=== PATIENT | female | born 1990 | race Caucasian/White ===

== ENCOUNTER 2018-12-27 08:00 | Inpatient (IN) ==
[2018-12-27] MEDS ORDERED: Famotidine 20 MG/2 ML VIAL IVP PRN (08:13)
[2018-12-27] MEDS ORDERED: *HR* Nalbuphine 10 MG/ML AMPUL IVP PRN (08:13)
[2018-12-27] MEDS ORDERED: Metoclopramide 10 MG/2 ML VIAL IVP PRN (08:13)
[2018-12-27] MEDS ORDERED: Ondansetron 4 MG/2 ML VIAL IVP PRN (08:13)
[2018-12-27] MEDS ORDERED: Oxytocin 20 units/ LR 1000 mL 20 UNIT/1,000 ML BAG IVC SCH (08:15)
[2018-12-27] MEDS ORDERED: Ringers Solution, Lactated 1,000 ML IVC SCH (08:15)
[2018-12-27 08:50] LABS: Basophils # 0.1 K/mcL (0.0-0.2); Basophils % 0.4 %; Eosinophils # 0.1 K/mcL (0.0-0.6); Eosinophils % 0.7 %; Hematocrit 32.1 % (35.3-44.9); Hemoglobin 10.8 g/dL (11.5-15.4); Immature Granulocytes % 1.1 % (0-4); Lymphocytes % 24.2 %; Mean Corpuscular HGB Conc 33.6 g/dL (31.6-35.5); Mean Corpuscular Hemoglobin 30.4 pg (28.0-33.3); Mean Corpuscular Volume 90.4 fL (83.0-100.0); Mean Platelet Volume 9.7 fL (9.4-12.4); Monocytes % 7.6 %; Neutrophils # 8.3 K/mcL (1.6-8.9); Platelet Count 259 K/mcL (140-400); Red Blood Count 3.55 M/mcL (3.82-4.97); Red Cell Distribution Width 13.5 % (11.5-14.5)
[2018-12-27 09:27] LABS: Amphetamine Screen,Urine Negative ng/mL (Cutoff=1000); Barbiturate Screen,Urine Negative ng/mL (Cutoff=200); Benzodiazepines Screen,Urine Negative ng/mL (Cutoff=200); Cocaine Screen,Urine Negative ng/mL (Cutoff= 300); Opiate Screen,Urine Negative ng/mL (Cutoff=300); Phencyclidine Screen,Urine Negative ng/mL (Cutoff=25)
[2018-12-27 09:34] LABS: Cannabinoid Screen,Urine Negative ng/mL (Cutoff = 50)
[2018-12-27] MEDS ORDERED: Lidocaine -MPF 1% 5 ML AMPUL ONE ×2 (15:28→17:08)
[2018-12-27] MEDS ORDERED: Epidural Premix (fent/bupiv) 110 ML EP SCH (15:30)
--- NOTE | 2018-12-27 16:07 | Anesthesia Evaluation PreOp ---
Date of Encounter: 12/27/18 Time of Encounter: 14:30 - Past History Planned Operation: bernarda Cardiac History: Denies any Significant Hx Pulmonary History: Denies Any Significant HX GWOT IA/[employer] SUPPORT History: Denies Any Significant HX Other Medical History: Denies Any Significant HX Anesthesia History: No Prior Anesthetic Complications : Yes Test: Positive Alcohol Use: none Drug use: none Medications and Allergies Ondansetron HCl [Zofran] 4 mg PO Q8H PRN 10/31/18 [History] Pnv95/Ferrous Fumarate/FA [ Vitamin Tablet] 1 each PO DAILY 10/31/18 [History] Allergy/AdvReac Type Severity Reaction Status Date / Time cephalexin [From Keflex] Allergy Rash Verified 10/31/18 18:04 - Meds/Allergy Pre-op Review Medications Reviewed: Yes Allergies Reviewed: Yes Beta Blockers on Current Med List: Yes Anesthesia Results - Labs 12/27/18 08:25 Anesthesia Exam - HEENT Pupil (Motor): Pupils equal Mallampati: II Teeth: Normal Oral Opening: Greater than 3 - GWOT IA/[employer] SU[employer] LOC: Oriented GWOT IA/[employer] SU[employer] Motor: Normal RUE, Normal LUE, Normal RLE, Normal LLE, Normal Face GWOT IA/[employer] SU[employer] Sensory: Normal: RUE, LUE, RLE, LLE, Face - Cardiac Rhythm: Regular Murmur: None JVD: No Carotid Bruit: No - Pulmonary Breath Sounds: bilateral Clear Respiratory Effort: Symmetrical Anesthesia Assess/Plan ASA Score: 2 Level of consciousness: Cooperative Anesthetic Plan: Epidural
--- NOTE | 2018-12-27 16:09 | Anesthesia Procedures ---
Addendum entered and electronically signed by Fide Ace CRNA 12/28/18 06:22: converted to csection at [id number] baby [id number] Addendum entered and electronically signed by Fide Ace CRNA 12/27/18 17:49: called to patients room state labor pain level 7 with contractions, option of redoing epidural given, risks benefits explained, pt agrees, epidural catheter pulled, tip intact. L3 4 innerspace identified, betadine cleanse x3, sterile drape, HUEY technigue 18 gauge touhy with saline to epidural space, no csf, or heme noted. catheter thread with ease, negative test dose 1.5%lidocaine with epi 3ml. Lidocaine 2% with epi 8ml given via catheter. opsite, tape applied. catheter at 8cm skin, states immediate relief from contractions. Original Note: Date of Encounter: 12/27/18 Time of Encounter: 14:30 Procedures: Anesthesia - Epidural/Spinal Patient ID/Chart reviewed: Yes Patient examined: Yes OB Eval: Gestational age: 39.4 OB Eval: : 2 OB Eval: Hx Para: 1 OB Eval: Dilated at (cm): 4 OB Eval: Contractions: Non-stressed pattern Consent Obtained: Yes Supplemental Oxygen: None/Room Air Site Prep: Aseptic Technique, Sterile prep and drape, Povidone-Iodine 1% Patient position: upright Amount of Local Anesthetic used: 3 Touhy Needle Gauge: 18 Touhy Needle Depth (cm): 9 Catheter Depth at Skin (cm): 8 Test Dose (1.5% Lido + Epi): Volume given (mls): 3 Test Dose Result: Negative Infusion Rate (mls/hr): [address]: Tegaderm, Tape Interspace Used: L4-L5 Loss of Resistance (HUEY): Yes Blood: No CSF: No Paresthesia: No Vitals + FHT's: stable throughout see nursing notes. tolerated procedure well
[2018-12-27] MEDS ORDERED: EPHEDrine 50 MG/ML VIAL ONE (17:43)
--- NOTE | 2018-12-27 18:53 | OB Labor Progress Note ---
Date of Encounter: 12/27/18 Time of Encounter: 18:50 Labor Progress Note - Subjective Subjective: Pt comfortable with epidural - Cervix Cervix: 4-5/90/-2 - Heart Tones Heart Tones: RNST - [place]: uc's - Interventions Interventions: IUPC placed - Plan Plan: Expect
--- NOTE | 2018-12-27 18:57 | OB/GYN History & Physical ---
Date of Encounter: 12/27/18 Time of Encounter: 18:55 Assessment and Plan (1) 39 weeks gestation of Current visit: Yes Status: Acute Pt at 39 weeks gestation presents for induction of labor. Pt with h/o prior c- sec and desires attempt at TOLAC> She is aware of risks of TOLAC and has signed appropriate consent. History of Present Illness Chief complaint: Here for induction of labor HPI: Ms. Medina is a 28 year old female female at 39 weeks EGA presents for induction of labor. She reports + GFM, no vb or lof. Pt has h/o FTP in labor at 9 cm. Past Med Surg Social Fam HX - Past Medical History Source: patient, old records reviewed Medical history: no medical history Psychiatric history: no psych history - Past Surgical History Surgical History: , cholecystectomy - Social History Smoking Status: Never smoker Alcohol use: none Drug use: none - Family History Mother Living Status: Still Living Hx Family Cardiac Disorders: No Hx Family Respiratory Disorders: No Hx Family Cancer: No Hx Family GI Disorders: No Hx Family Endocrine Disorder: No Hx Family Neuromuscular Disorders: No Hx Family Neurologic Disorders: No Hx Family HEENT Disorders: No Hx Family Autoimmune Disorders: No Obstetrical History - Pregnancies : 2 Medications and Allergies Ondansetron HCl [Zofran] 4 mg PO Q8H PRN 10/31/18 [History] Pnv95/Ferrous Fumarate/FA [ Vitamin Tablet] 1 each PO DAILY 10/31/18 [History] Allergy/AdvReac Type Severity Reaction Status Date / Time cephalexin [From Keflex] Allergy Rash Verified 10/31/18 18:04 Exam - Constitutional Constitutional: well developed, no acute distress - HEENT HEENT: EOMI, PERRL - Neck Neck exam: full ROM - Lungs Respiratory exam: CTAB - Cardiovascular Cardiovascular exam: RRR - Abdomen Abdomen: Present: gravid - Extremities Extremities exam: full ROM Deep Tendon Reflex Grade: 2+ Normal - Cervix Dilation: 3 Effacement: 80 Station: -2 Results Result Diagrams: 12/27/18 08:25 Abnormal lab results WBC 12.5 K/mcL (4.3-11.1) H 12/27/18 08:25 RBC 3.55 M/mcL (3.82-4.97) L 12/27/18 08:25 Hgb 10.8 g/dL (11.5-15.4) L 12/27/18 08:25 Hct 32.1 % (35.3-44.9) L 12/27/18 08:25 All other labs normal. - VTE Reasons for not Prescribing Prophylaxis: Treatment not Indicated - Low risk for VTE
--- NOTE | 2018-12-27 21:46 | OB Labor Progress Note ---
Date of Encounter: 12/27/18 Time of Encounter: 21:44 Labor Progress Note - Subjective Subjective: Pt comfortable with epidural,, getting discouraged. - Cervix Cervix: 5+/90/0, bloody show noted - Heart Tones Heart Tones: RNST - [place]: UC'sq 90sec to 3 min. - Plan Plan: D/w pt options, will cont. with induction.
[2018-12-28] MEDS ORDERED: Metoclopramide 10 MG/2 ML VIAL IVP ONE (00:57)
--- NOTE | 2018-12-28 05:10 | OB Labor Progress Note ---
Date of Encounter: 12/28/18 Time of Encounter: 05:06 Labor Progress Note - Subjective Subjective: Pt comfortable with epidural. Cvx remains rim/c/+1 without change for 2 hours. FHT's 150's with occ late decels therefore pitocin has needed to be turned off. Pt with desire for . She is aware of operative risks and desires to proceed with . She signed appropriate consent. - Cervix Cervix: rim/c/+1 - Heart Tones Heart Tones: FHT's 150's - Interventions Interventions: D/w pt options and will proceed with . - Plan Plan: Will proceed with primary .
[2018-12-28] MEDS ORDERED: Lidocaine/EPI 1:200k 2% PF 20 ML VIAL ONE ×2 (05:34→05:42)
[2018-12-28] MEDS ORDERED: Clindamycin 900 MG/50 ML 900 MG/50 ML IV.SOLN IVPB ONE (05:40)
[2018-12-28] MEDS ORDERED: Dexamethasone 4 MG/ML VIAL ONE (05:47)
[2018-12-28] MEDS ORDERED: Ondansetron 4 MG/2 ML VIAL ONE (05:47)
[2018-12-28] MEDS ORDERED: Ketorolac 30 MG/ML VIAL ONE (05:47)
[2018-12-28] MEDS ORDERED: *HR* OxyCODONE Immed Rel 5 MG TABLET PO PRN (06:19)
[2018-12-28] MEDS ORDERED: *HR* Promethazine 25 MG/ML VIAL IVP PRN (06:19)
[2018-12-28] MEDS ORDERED: *HR* HYDROmorphone (PF) 1 MG/ML SYRINGE IVP PRN (06:19)
[2018-12-28] MEDS ORDERED: Ondansetron 4 MG/2 ML VIAL IVP ONE (06:19)
[2018-12-28] MEDS ORDERED: *HR* Morphine Sulfate/PF 10 MG/10 ML AMPUL ONE (06:30)
[2018-12-28] MEDS ORDERED: Azithromycin 500 MG in D5% in Water 250 ML IVPB ONE (07:04)
[2018-12-28] MEDS ORDERED: Gentamicin 100 MG in 0.9 % Sodium Chloride 100 ML IVPB ONE (07:46)
[2018-12-28] MEDS ORDERED: Sennosides 8.6 MG TABLET PO PRN (09:25)
[2018-12-28] MEDS ORDERED: Rho Immune Globulin 1,500 UNIT SYRINGE IM ONE (09:25)
[2018-12-28] MEDS ORDERED: Naloxone 0.4 MG/ML INJ IVP PRN (09:25)
[2018-12-28] MEDS ORDERED: Simethicone 80 MG TAB.CHEW PO PRN (09:25)
[2018-12-28] MEDS ORDERED: Ondansetron 4 MG/2 ML VIAL IVP PRN (09:25)
[2018-12-28] MEDS ORDERED: Ringers Solution, Lactated 1,000 ML IVC SCH (09:25)
[2018-12-28] MEDS ORDERED: Metoclopramide 10 MG/2 ML VIAL IVP PRN (09:25)
[2018-12-28] MEDS ORDERED: Oxytocin 20 units/ LR 1000 mL 20 UNIT/1,000 ML BAG IVC SCH (09:25)
--- NOTE | 2018-12-28 09:25 | OB/GYN Procedure Note ---
Section - Date of procedure: 12/28/18 Preop diagnosis: desires repeat , arrest of descent, arrest of dilation, category 2 FHT tracing Post-op diagnosis: other (Loose nuchal cord 1, dense adhesions between the uterus from the level of the bladder reflection to the uterine fundus and the anterior abdominal wall.) Procedure: repeat low transverse, other (Lysis of adhesions) Surgeon: Yunior Yuan Blood Loss: 600 Was there an grants and contracts assistant present: No Anesthesiologist: Chadd Farmer Store Team Member: Fide Ace Anesthesia Type: Epidural section complications: none Disposition: PACU Specimens: Placenta - (s) A Delivery Date: 12/28/18 Infant Delivery Time: 06:05 Presentation: vertex Route of delivery: vacuum extraction Gender: Female Viability: Nonviable Gram Weight: 3250 kg at 1 minute: 9 at 5 minutes: 9 Shoulder Dystocia: not encountered Specimens collected: cord blood Placenta: spontaneous Cord: 3 umbilical vessels (Patient's 28-year-old 2 now para 2 female who presented to office yesterday for attempted trial of labor after prior c secdtion. She eventually did reach room dilation however she made no further progress after 2 hours she was having some late decelerations her Pitocin had been turned off she is quite exhausted and did not desire any further effort vaginal delivery. She is aware operative risks and signed appropriate consent.Description procedure: Patient was taken operating room where epidural was dosed. She was prepped draped in usual sterile fashion. Bladder was drained of clear urine with Nicolas catheter. Scalpel was used to make things to skin incision over patient's prior incision. This was sharply taken on the midline fascial incision was extended in the midline.) - Narrative Narrative: Patient was taken operating room epidural was dosed. She was prepped draped in usual sterile fashion. Bladder was drained of clear urine with Nicolas catheter. Scalpel was used to make things still skin sick incision which was sharply taken on the rectus fascia. Fascia was incised midline fascial incision was extended bilaterally. There were some dense adhesions between the uterus and anterior abdominal wall these were taken down Bovie. Bladder bulb was noted and I was able to dissect above the bladder to gain entrance into the anterior cul-de-sac. Once this was entered was easily able take down the dense adhesions. Bladder flap was developed and lower uterine segment scalpel she is in low transverse uterine incision was made. Infant was delivered from vertex presentation oropharynx and nasopharynx were suctioned of clear fluid. initially did have a 3 minute however this did recover well to 5 minute was 9. Cord gases were obtained which are pending. Once the baby was delivered the placenta was easily delivered. Uterine cavity was massaged to firm Hemostasis was ensured. All sponge and instruments were correct.
[2018-12-28] MEDS: Ibuprofen 600 MG TABLET PO PRN (20:37)
[2018-12-28] MEDS: Azithromycin 250 MG TABLET PO SCH (20:37)
[2018-12-29] MEDS: Ibuprofen 600 MG TABLET PO PRN ×4 (04:14→22:29)
[2018-12-29 05:19] LABS: Basophils % 0.2 %; Eosinophils % 0.2 %; Hematocrit 25.4 % (35.3-44.9); Immature Granulocytes % 1.3 % (0-4); Lymphocytes # 2.9 K/mcL (0.6-4.6); Lymphocytes % 15.2 %; Mean Corpuscular HGB Conc 33.9 g/dL (31.6-35.5); Mean Corpuscular Hemoglobin 31.4 pg (28.0-33.3); Mean Corpuscular Volume 92.7 fL (83.0-100.0); Mean Platelet Volume 9.6 fL (9.4-12.4); Monocytes # 1.3 K/mcL (0.0-1.3); Neutrophils # 14.4 K/mcL (1.6-8.9); Platelet Count 212 K/mcL (140-400); Red Blood Count 2.74 M/mcL (3.82-4.97); Red Cell Distribution Width 13.4 % (11.5-14.5); Segmented Neutrophils % 76.1 %
[2018-12-29 05:20] LABS: Hemoglobin 8.6 g/dL (11.5-15.4)
[2018-12-29] MEDS: Azithromycin 250 MG TABLET PO SCH (08:21)
[2018-12-29] MEDS: Prenatal Vit/FA 1 EACH TABLET PO SCH (08:21)
--- NOTE | 2018-12-29 15:31 | OB/GYN Progress Note ---
Date of Encounter: 12/29/18 Time of Encounter: 15:29 - Assessment and Plan (1) 39 weeks gestation of Current Visit: Yes Status: Acute 28yo s/p rLTCS for failed TOLAC, POD#1 management - voiding independently without hematuria - pain controlled with po regimen - denies VB, minimal if any - denies issues with incision, CDI - no fevers/chills: VSS, HDS Dispo: Continue to progress toward PP milestones. Will plan for DC to home likely tomorrow pending baby and patient status. MD DOLORES Subjective - Subjective Principal diagnosis: s/p rLTCS Interval history: 28yo s/p rLTCS s/p failed TOLAC, POD#1. Patient doing well today. Pain controlled with PO regimen. Tolerating PO diet. Denies n/v/d. Meeting milestones appropriately. Baby doing well and at bedside. No question(S) or concerns. Voiding independently. Ambulating with minimal difficulty. Patient reports: appetite normal, voiding normally, pain well controlled, ambulating normally : doing well Objective - Vital Signs Latest vital signs: Vital Signs Temp Pulse Resp BP Pulse Ox 12/29/18 08:47 98.3 F 98 14 105/65 95 12/29/18 04:20 98.1 F 98 14 125/88 98 12/29/18 01:00 98.0 F 84 16 102/68 97 12/28/18 20:25 98.4 F 84 14 109/68 98 12/28/18 16:06 16 12/28/18 15:40 98.1 F 86 16 105/63 Intake and Output 12/28/18 12/29/18 12/29/18 23:59 07:59 15:59 Intake Total 300 / 300 600 / 600 Output Total 250 / 250 200 / 200 900 / 900 Balance 50 / 50 400 / 400 -900 / -900 Intake: Oral 300 / 300 600 / 600 Output: Urine 200 / 200 900 / 900 Catheter 250 / 250 Other: # Voids 1 Weight 102 kg Patient Weight 12/29/18 23:59 Weight 102 kg - Exam Extremities: Present: normal Abdomen: Present: normal appearance Incision: Present: normal, dry, intact, dressed Uterus: Present: normal - Labs Labs: Laboratory Results - last 24 hr 12/29/18 04:25 WBC 18.9 H D RBC 2.74 L Hgb 8.6 L D Hct 25.4 L MCV 92.7 MCH 31.4 MCHC 33.9 RDW 13.4 Plt Count 212 MPV 9.6 Immature Gran % 1.3 Seg Neutrophils % 76.1 Lymphocytes % 15.2 Monocytes % 7.0 Eosinophils % 0.2 Basophils % 0.2 Neutrophils # 14.4 H Lymphocytes # 2.9 Monocytes # 1.3 Eosinophils # 0.0 Basophils # 0.0
[2018-12-29] MEDS: *HR* OxyCODONE/APAP 5/325 TABLET PO PRN (18:29)
[2018-12-30] MEDS: Ibuprofen 600 MG TABLET PO PRN ×2 (04:36→10:44)
[2018-12-30] MEDS: Azithromycin 250 MG TABLET PO SCH (09:24)
[2018-12-30] MEDS: Prenatal Vit/FA 1 EACH TABLET PO SCH (09:24)
[2018-12-30 10:02] VITALS: BP 107/75
--- NOTE | 2018-12-30 11:20 | Discharge Summary ---
Date of Encounter: 12/30/18 Time of Encounter: 11:14 - Discharge Diagnosis (1) Status post repeat low transverse section Priority: Primary Status: Acute Comments: Feeling well Tolerating regular diet Pain well-controlled with by mouth pain meds Ambulating independently Voiding independently Lochia light Passing flatus, no BM yet Vital signs stable Discharge home today (2) Breast feeding status of mother Priority: Secondary Status: Acute Comments: Community resources provided (3) anemia Priority: Secondary Status: Acute Comments: Continue iron supplementation twice daily - Discharge Medications Prescriptions: New HYDROcodone/Acet 10/325 mg [[place] 10-325 mg] 1 tab PO Q4HR PRN 7 Days #15 tab PRN Reason: Pain Ibuprofen [Motrin] 600 mg PO Q6HR PRN #30 tablet PRN Reason: Cramping Ferrous Sulfate 325 mg PO BIDWM #60 tablet OxyCODONE/APAP 5/325 [Percocet 5/325 MG] 1 each PO Q6H PRN 5 Days #20 tablet PRN Reason: Moderate pain 4-6 Continue Ondansetron HCl [Zofran] 4 mg PO Q8H PRN PRN Reason: Nausea Pnv95/Ferrous Fumarate/FA [ Vitamin Tablet] 1 each PO DAILY Home Medications: Ondansetron HCl [Zofran] 4 mg PO Q8H PRN 10/31/18 [History] Pnv95/Ferrous Fumarate/FA [ Vitamin Tablet] 1 each PO DAILY 10/31/18 [History] HYDROcodone/Acet 10/325 mg [[place] 10-325 mg] 1 tab PO Q4HR PRN 7 Days #15 tab 12/29/18 [Rx] Ferrous Sulfate 325 mg PO BIDWM #60 tablet 12/30/18 [Rx] Ibuprofen [Motrin] 600 mg PO Q6HR PRN #30 tablet 12/30/18 [Rx] OxyCODONE/APAP 5/325 [Percocet 5/325 MG] 1 each PO Q6H PRN 5 Days #20 tablet 12/30/18 [Rx] Allergies/Adverse Reactions: Allergy/AdvReac Type Severity Reaction Status Date / Time cephalexin [From Keflex] Allergy Rash Verified 10/31/18 18:04 Data Procedures and tests throughout hospitalization: Laboratory Tests 12/27/18 12/27/18 12/29/18 08:25 08:25 04:25 WBC 12.5 H 18.9 H D RBC 3.55 L 2.74 L Hgb 10.8 L 8.6 L D Hct 32.1 L 25.4 L MCV 90.4 92.7 MCH 30.4 31.4 MCHC 33.6 33.9 RDW 13.5 13.4 Plt Count 259 212 MPV 9.7 9.6 Immature Gran % 1.1 1.3 Seg Neutrophils % 66.0 76.1 Lymphocytes % 24.2 15.2 Monocytes % 7.6 7.0 Eosinophils % 0.7 0.2 Basophils % 0.4 0.2 Neutrophils # 8.3 14.4 H Lymphocytes # 3.0 2.9 Monocytes # 1.0 1.3 Eosinophils # 0.1 0.0 Basophils # 0.1 0.0 Urine Opiates Screen Negative Ur Barbiturates Screen Negative Ur Phencyclidine Scrn Negative Ur Amphetamines Screen Negative U Benzodiazepines Scrn Negative Urine Cocaine Screen Negative U Marijuana (THC) Screen Negative Ur Drug Screen Interp See Below Date of admission: 12/27/18 08:06 Primary care physician: PCP NONE Discharging clinician: Florina Lombardi Anticipated date of discharge: 12/30/18 - Patient Status Disposition: Home, Self-Care Condition: Good Functional capacity at discharge: independent ambulation Overall status at discharge: patient is progressing back to baseline - Discharge Instructions Follow Up With: NONE,PCP [Primary Care Provider] - Yunior Carranza MD [Partnered Physician] - - Diet and Activity Activity: increase activity as tolerated Diet: regular diet Hospital Course Reason for admission: induction of labor, IUP at term Delivery: section Episiotomy: none Laceration: none Other procedures: none complications: none Discharge diagnosis: IUP at term delivered baby: female Time Attestation: Total time spent providing and/or coordinating discharge services: Time Spent: Less than 30 minutes - VTE Reasons for not Prescribing Prophylaxis: Treatment not Indicated - Low risk for VTE Documentation of Mechanical Device: Intermittent pneumatic compression device Exam - Constitutional Vitals: Temp Pulse Resp BP Pulse Ox 98.4 F 98 16 107/75 95 12/30/18 10:01 12/30/18 10:01 12/30/18 10:01 12/30/18 10:01 04/11/19 08:47 General appearance IM: A&O X 3 - Respiratory Respiratory exam: Present: CTAB - Cardiovascular Cardiovascular exam IM: Present: RRR, +S1, +S2 - GI/Abdominal GI/Abdominal exam IM: normal bowel sounds, no peritoneal signs Incision: normal, dry, dressed - Rectal Rectal exam: deferred - Uterine Tone: Firm Uterus Position: At Umbilicus, Midline - Extremities Exam Extremities exam IM: Present: full ROM, normal capillary refill, normal inspection, radial pulses palpable and symmetrical - Neurological Exam Neurological exam: alert, CN II-XII intact, normal gait, oriented X3, reflexes normal, no focal deficits, strengths equal and symetr throughout - Psychiatric Additional comments: Signs and symptoms of depression discussed with patient and family and they verbalized understanding of when to seek help
[2018-12-30] MEDS: *HR* OxyCODONE/APAP 5/325 TABLET PO PRN (12:44)
== END 2018-12-30 13:06 | disposition home or self-care (01) | DRG 540 ==
LOC: 1NENULAB 08:06 → 1NENUOBS 12-28 09:16
PROVIDERS: ADMIT Obstetrics & Gynecology; ATTEND Obstetrics & Gynecology